=== PATIENT | female | born 2000 | race Caucasian/White ===

== ENCOUNTER 2020-01-22 11:28 | Emergency (ER) | payer MEDICAID, SELFPAY ==
[2020-01-22 11:42] VITALS: BP 127/86; PULSE 85; RESP 16; TEMP 36.7; O2SAT 99; BMI 27.4
[2020-01-22 11:45] VITALS: BP 132/83; PULSE 84; RESP 16; O2SAT 97
--- NOTE | 2020-01-22 12:10 | W.ED.WOUNDLC ---
HPI - Wound/Laceration General: Chief Complaint: Wound/Laceration Stated Complaint: L HAND LACERATION Time Seen by Provider: 01/22/20 11:48 Source: patient Mode of arrival: ambulatory Limitations: no limitations History of Present Illness: HPI narrative: Patient is a 19-year-old female who presents to ED today with complaints of a left hand laceration that she sustained last night after an boxing a knife set they had purchased for their mother. Patient states she is presenting today because laceration continues to ooze/bleed. Onset (ago): hour(s) Extremity Location: Left: hand Place: home Patient tetanus UTD: Yes Context: accidental Associated symptoms: Reports no associated symptoms Treatments prior to arrival: bandage Review of Systems Skin/Breast: Reports: other (laceration L hand) Neuro: Denies: numbness in extremities or sensory changes PFS ED PFSH: Medical History (Updated 01/22/20 @ 13:38 by JAZLYN Matute) Blood type A- No pertinent past medical history Surgical History (Updated 01/19/20 @ 21:09 by Jeff Bland MD) History of adenoidectomy (~2003) History of repair of ACL (~2014) Right knee Family History Grandfather Hypertension paternal Grandmother Hypertension paternal Diabetes paternal Mother Hypertension Heart disease Family/Other Ovarian cancer maternal great aunt Breast cancer maternal great aunt Social History Smoking and tobacco status: current every day smoker cigarettes Packs smoked per day: 0.25 Years cigarettes smoked: 4 Alcohol intake: never Female Reproductive History: Date of last menstrual period: 01/19/20 Physical Exam Const: COMMON NORMALS: no acute distress, average body habitus, patient oriented x3, no limitations, healthy appearing, alert and well nourished Extremity: OTHER: L hand laceration: small 1.0cm flap laceration that overlies palmar 2nd MCP; very mild oozing; laceration is extremely shallow and does not involve bone or tendon Neuro: COMMON NORMALS: patient oriented x3 SENSORIUM/ORIENTATION: Yes alert Skin: OTHER: see extremity assessment Procedures Laceration Laceration 1: Site: hand Side (If applicable): left Size (cm): 1.0 Description: flap Depth: simple, single layer Local Anesthetic: lidocaine 1% Amount of anesthesia used (mL): 0.5 Pre-repair: wound explored and irrigated extensively Skin layer closed with: nylon Size (cm): 5-0 Number of sutures: 3 Technique: simple, interrupted Course Vital Signs: Vital signs: Vital Signs Temperature 98.1 F 01/22/20 11:42 Pulse Rate 84 01/22/20 11:45 Respiratory Rate 16 01/22/20 11:45 Blood Pressure 132/83 01/22/20 11:45 Pulse Oximetry 97 01/22/20 11:45 Discharge Plan Discharge Patient Disposition: Home, Self-Care Clinical Impression: Laceration of left hand Qualifiers: Encounter type: initial encounter Foreign body presence: without foreign body Qualified Code(s): S61.412A - Laceration without foreign body of left hand, initial encounter Condition: Stable Prescriptions: No Action ibuprofen 600 mg tablet 600 mg PO Q8H PRNRF: 0 multivitamin Tablet 1 tab PO DAILY RF: 0 norgestimate-ethinyl estradiol [Sprintec (28)] 0.25-35 mg-mcg tablet 1 tab PO DAILY Qty: 28 RF: 12 Discharge Orders: Discharge Order (Routine); Ordered 01/22/20 Ordered By: Tia Russo Referrals: Lilibeth Sainz FNP [Primary Care Provider] - Patient Instructions: Suture Care (ED), Laceration (ED) Activity Restrictions/Additional Instructions: Keep wound clean with warm soap and water several times daily. Monitor for signs of infection such as redness, swelling, drainage. Sutures may be cut out in 5 to 7 days. Coding Level of Care Code ED [employer] for [facility]yan[facility]
[2020-01-22] MEDS: lidocaine 2% INJ 20 mL INJECTION (12:55)
[2020-01-22 14:12] VITALS: BP 118/79; PULSE 79; RESP 16; O2SAT 97
== END 2020-01-22 14:15 | disposition home or self-care (01) ==
PROVIDERS: Emergency Provider Physician Assistant; Family Provider Registered Nurse; PCP Registered Nurse
DX: S61.412A Laceration without foreign body of left hand, initial encounter (principal); W26.0XXA Contact with knife, initial encounter; F17.210 Nicotine dependence, cigarettes, uncomplicated
CPT/HCPCS: 12001; 12345; 99282; J2001

== ENCOUNTER → 2020-03-10 10:33 | Outpatient (BNVA) | payer MEDICAID, SELFPAY | PROVIDERS: Family Provider Registered Nurse; PCP Registered Nurse; Visit Provider Registered Nurse | DX: M79.10 Myalgia, unspecified site (principal); R53.83 Other fatigue; L98.9 Disorder of the skin and subcutaneous tissue, unspecified; L85.8 Other specified epidermal thickening; L81.1 Chloasma | CPT/HCPCS: 81000; 85025; 85651; 86038; 86141 ==

== ENCOUNTER → 2020-03-21 10:41 | Outpatient (BNVA) | payer MEDICAID, SELFPAY | PROVIDERS: Family Provider Registered Nurse; PCP Registered Nurse; Visit Provider Registered Nurse | DX: R79.82 Elevated C-reactive protein (CRP) (principal); Z98.890 Other specified postprocedural states | CPT/HCPCS: 86140; 86431 ==

== ENCOUNTER → 2020-04-27 13:27 | Outpatient (BNVA) | payer MEDICAID, SELFPAY | PROVIDERS: Family Provider Registered Nurse; PCP Registered Nurse; Visit Provider Nurse Practitioner Women's Health | DX: Z01.419 Encounter for gynecological examination (general) (routine) without abnormal findings (principal) | CPT/HCPCS: 88175 ==

== ENCOUNTER → 2021-06-26 11:12 | Outpatient (BNVA) | payer MEDICAID, SELFPAY | PROVIDERS: Family Provider Registered Nurse; PCP Registered Nurse; Visit Provider Registered Nurse | DX: I82.461 Acute embolism and thrombosis of right calf muscular vein (principal); E03.9 Hypothyroidism, unspecified; I10 Essential (primary) hypertension | CPT/HCPCS: 84443; 85007; 85027 ==

== ENCOUNTER → 2022-06-28 10:12 | Outpatient (BNVA) | payer MEDICAID, SELFPAY | PROVIDERS: Family Provider Registered Nurse; PCP Registered Nurse; Visit Provider Nurse Practitioner Women's Health | DX: Z11.3 Encounter for screening for infections with a predominantly sexual mode of transmission (principal); N92.3 Ovulation bleeding; Z01.419 Encounter for gynecological examination (general) (routine) without abnormal findings | CPT/HCPCS: 84443; 86592; 86803; 87340; 87491; 87591; 87661; 87806; 88175 ==

== ENCOUNTER → 2022-07-16 12:44 | Outpatient (BNVA) | payer MEDICAID, SELFPAY | PROVIDERS: Family Provider Registered Nurse; PCP Registered Nurse; Visit Provider Nurse Practitioner Women's Health | DX: N92.3 Ovulation bleeding (principal) | CPT/HCPCS: 76830 ==

== ENCOUNTER → 2022-07-24 09:47 | Outpatient (BNVA) | payer MEDICAID, SELFPAY | PROVIDERS: Family Provider Registered Nurse; PCP Registered Nurse; Visit Provider Registered Nurse | DX: Z30.9 Encounter for contraceptive management, unspecified (principal) | CPT/HCPCS: 81025 ==

== ENCOUNTER → 2022-10-15 12:45 | Outpatient (BNVA) | payer MEDICAID, SELFPAY | PROVIDERS: Family Provider Registered Nurse; PCP Registered Nurse; Visit Provider Nurse Practitioner Women's Health | DX: N83.201 Unspecified ovarian cyst, right side (principal) | CPT/HCPCS: 76830 ==

== ENCOUNTER → 2023-01-08 10:00 | Outpatient (BNVA) | payer MEDICAID, SELFPAY | PROVIDERS: Family Provider Registered Nurse; PCP Registered Nurse; Visit Provider Nurse Practitioner Women's Health | DX: Z30.9 Encounter for contraceptive management, unspecified (principal) | CPT/HCPCS: 81025 ==

== ENCOUNTER → 2023-04-10 08:54 | Outpatient (BNVA) | payer MEDICAID, SELFPAY | PROVIDERS: Family Provider Registered Nurse; PCP Registered Nurse; Visit Provider Registered Nurse | DX: E53.8 Deficiency of other specified B group vitamins (principal); R63.4 Abnormal weight loss; E55.9 Vitamin D deficiency, unspecified | CPT/HCPCS: 80053; 82306; 82607; 84443; 85025 ==

== ENCOUNTER → 2023-10-09 08:14 | Outpatient (BNVA) | payer SELFPAY | PROVIDERS: Family Provider Registered Nurse; PCP Registered Nurse; Visit Provider Nurse Practitioner Women's Health | DX: Z30.9 Encounter for contraceptive management, unspecified (principal) | CPT/HCPCS: 81025 ==

== ENCOUNTER → 2023-11-19 08:04 | Outpatient (BNVA) | payer OTHER, SELFPAY | PROVIDERS: Family Provider Registered Nurse; PCP Registered Nurse; Visit Provider Nurse Practitioner Women's Health | DX: Z30.014 Encounter for initial prescription of intrauterine contraceptive device (principal) | CPT/HCPCS: 81025 ==

== ENCOUNTER → 2024-09-22 14:00 | Outpatient (BNVA) | payer OTHER, BC, SELFPAY | PROVIDERS: Family Provider Registered Nurse; PCP Registered Nurse; Visit Provider Nurse Practitioner Women's Health | DX: T83.32XA Displacement of intrauterine contraceptive device, initial encounter (principal); N83.292 Other ovarian cyst, left side; N83.291 Other ovarian cyst, right side | CPT/HCPCS: 76830 ==